=== PATIENT | female | born 1965 | race Caucasian/White ===

== ENCOUNTER 2017-11-06 18:21 | Emergency (ER) | payer OTHER, SELFPAY ==
[2017-11-06] VITALS (8 sets, daily range): BP systolic 129–163; BP diastolic 74–89; PULSE 70–98; RESP 12–18; TEMP 36.9; O2SAT 95–98; BMI 37.8
--- NOTE | 2017-11-06 19:06 | NURSING ---
NO OLD EKG'S IN MUSE
--- NOTE | 2017-11-06 19:17 | EKG12_ITS ---
Test Reason : CP Blood Pressure : / mmHG Vent. Rate : 104 BPM Atrial Rate : 104 BPM P-R Int : 156 ms QRS Dur : 074 ms QT Int : 320 ms P-R-T Axes : 052 011 039 degrees QTc Int : 420 ms Sinus tachycardia Otherwise normal ECG Confirmed by NICK SANCHEZ, KATHYA ([id number]), material expeditor AASHISH ESTES ([id number]) on 11/09/2017 12:54:02 PM Referred By: MARK Confirmed By:KATHYA ROMERO MD
--- NOTE | 2017-11-06 19:40 | RAD_ITS ---
STUDY: X-RAY CHEST REASON FOR EXAM: Female, 52 years old. Chest pain TECHNIQUE: Single AP portable view of the chest. COMPARISON: None. FINDINGS: The lungs are clear and expanded. There is no demonstrated pleural abnormality. Normal size heart. Normal mediastinum and praneeth. Normal visualized pulmonary arteries. Normal visualized aortic arch and descending thoracic aorta. Normal visualized thoracic spine. Normal visualized ribs, clavicles, and shoulders. There is no demonstrated abnormality of the visualized soft tissue structures of the upper abdomen. RAD/Chest 1 View (Portable) IMPRESSION: Normal x-ray examination of the chest. Electronically Signed: Alex Gant MD at 20:29 EST , Service support ,
--- NOTE | 2017-11-06 19:40 | ED.DCSUM_ITS ---
- ER Visit Summary Date of Service: 11/06/17 Chief Complaint: Chest pain History of Present Illness: The patient is a 52 F with history of fibromyalgia and degenerative joint disease who presents with chest pain since last night. Patient states it woke her from sleep. It is substernal and radiates to the right chest greater than the left chest and into the right neck and back. Patient vomited twice today but otherwise denies nausea, abdominal pain, diarrhea. She does have associated cough and shortness of breath. Chest pain is worse with deep breathing and certain movements. No difference with positional change. Patient has history of skin and cervical cancer. No coronary artery disease, asthma, diabetes, hypertension, high cholesterol. No exogenous steroids. No history of DVT or PE. Patient does have cardiac history in her family and smokes. Physical Examination: Vital signs: afebrile, hemodynamically stable, no hypoxia on room air, tachycardia General: well nourished, well developed, in no distress appears uncomfortable Skin: warm, dry, no rash, no pallor, flushing of the neck and face HEENT: normocephalic and atraumatic; PERRL, EOMI, moist mucous membranes Cardiovascular: Tachycardic regular rate and rhythm without murmurs, no peripheral edema, 2+ pulses all distal extremities Respiratory: No increased work of breathing, unable to take a deep breath secondary to pain, lungs are clear to auscultation bilaterally, no rales, rhonchi or wheezing Abdominal: Abdomen is soft, nontender with normoactive bowel sounds, no guarding or rebound, no masses MSK: Moves all extremities, no deformities, normal strength Neuro: Awake and alert, oriented ?4. No facial droop, sensation and motor function intact and symmetric Test Results: Abnormal Lab Results 11/06/17 11/06/17 11/06/17 18:38 18:38 18:38 WBC 7.7 RBC 4.29 Hgb 12.0 Hct 37.4 MCV 87.2 MCH 28.0 MCHC 32.1 RDW 14.7 H RDW Differential 46.7 H Plt Count 336 MPV 10.1 Immature Gran % (Auto) 0.300 Neut % (Auto) 55.3 Lymph % (Auto) 31.0 [place] % (Auto) 10.4 H Eos % (Auto) 2.5 Baso % (Auto) 0.5 Absolute Neuts (auto) 4.2 Absolute Lymphs (auto) 2.38 Total Counted Not Reportable D-Dimer Quant (PE/DVT) < 0.27 L Sodium 139 Potassium 3.9 Chloride 107 Carbon Dioxide 23.0 Anion Gap 9 BUN 14 Creatinine 0.73 Estim Creat Clear Calc 79.61 Est GFR (MDRD) Af Amer 109 Est GFR (MDRD) Non-Af 90 BUN/Creatinine Ratio 19.3 Glucose 103 Calcium 9.0 Total Bilirubin Direct Bilirubin AST ALT Alkaline Phosphatase Troponin I < 0.02 Total Protein Albumin Globulin Lipase 11/06/17 18:38 WBC RBC Hgb Hct MCV MCH MCHC RDW RDW Differential Plt Count MPV Immature Gran % (Auto) Neut % (Auto) Lymph % (Auto) [place] % (Auto) Eos % (Auto) Baso % (Auto) Absolute Neuts (auto) Absolute Lymphs (auto) Total Counted D-Dimer Quant (PE/DVT) Sodium Potassium Chloride Carbon Dioxide Anion Gap BUN Creatinine Estim Creat Clear Calc Est GFR (MDRD) Af Amer Est GFR (MDRD) Non-Af BUN/Creatinine Ratio Glucose Calcium Total Bilirubin 0.20 Direct Bilirubin 0.06 AST 17 ALT 35 Alkaline Phosphatase 59 Troponin I Total Protein 7.2 Albumin 3.6 Globulin 3.6 Lipase 167 Emergency Department Course and Treatment: Chest pain workup was performed. Patient was given aspirin and nitroglycerin as well as Zofran. IV fluids were given. EKG showed a sinus tachycardia with no ischemic changes. D-dimer negative. Troponin normal. CBC and BMP were unremarkable. No hepatic derangements. EKG showed a tachycardic rate with no ischemic changes or ectopy. Chest x-ray showed no acute process. She continued to have severe chest pain that she said was getting worse, now complaining of neck pain, severe headache and back pain. Because of the worsening of her symptoms in multiple locations, a CT angiogram of the chest was performed to evaluate for possible dissection. There was no pulmonary embolism or dissection noted. There was findings of a posterior right lower lobe bronchus that was obstructed likely by a mucous plug, and a questionable lingula infiltrate. And was to admit the patient for further management and treatment with antibiotics as well as evaluation for the bronchial obstruction. However patient said she was leaving before her results could be discussed with her. Patient would not stop and wait for the nurse to get me so that we could discuss her concerning findings. Patient was adamant she was leaving and the nurse had to follow her out to the waiting room to make sure the IV was removed prior to patient walking out with it in place. Return IV out and walked out the door. Patient left prior to completion of her workup and would not wait for any further discussion with me before leaving. Treatment Plan: [] Disposition: Patient eloped Impression: Right bronchial obstruction, chest pain This note was generated with [employer] dictation software. It may contain incorrect words, spelling, and punctuation that were not noted in review of the chart prior to signing ED Disposition - Plan for ED Patient: Disposition: Against Medical Advice Chief Complaint: Chest Pain Referrals: Town Doctor,Out of [NON-STAFF] -
[2017-11-06 19:56] LABS: Absolute Lymphocyte Count 2.38 X10^3/ul (0.83-4.51); Absolute Neutrophil Count 4.2 X10^3/uL (2.0-7.7); Basophil# 0.04 X10^3/uL; Basophil% 0.5 % (0-1); Eosinophil# 0.19 X10^3/uL; Eosinophils% 2.5 % (0-5); Hematocrit 37.4 % (37-47); Lymphocyte # 2.38 X10^3/ul (4.0); Mean Corp Hgb Conc 32.1 g/gl (32-36); Mean Corpuscular Volume 87.2 fL (81-99); Mean Platelet Vol. 10.1 fl (6.2-12.0); Monocyte% 10.4 % (0-10); Neutrophil # 4.24 X10^3/uL (2.7-7.7); Neutrophil % 55.3 % (47-70); Platelet Count 336 K/mm3 (150-450); RBC Distribution Width CV 14.7 % (11.6-14.6); RBC Distribution Width SD 46.7 fl (35.1-43.9); Red Blood Count 4.29 M/mm3 (4.2-5.4); White Blood Count 7.7 K/mm3 (4.4-11.0)
[2017-11-06 19:57] LABS: POSITIVE COUNT NO; POSITIVE DIFFERENTIAL NO; POSITIVE MORPHOLOGY NO
[2017-11-06] MEDS: Aspirin 81 MG TAB.CHEW 324 MG PO (20:00)
[2017-11-06] MEDS: Ondansetron 4 MG/2 ML Vial IV (20:00)
[2017-11-06] MEDS: 0.9% Normal Saline 1,000 ML 1000 ML IV (20:02)
[2017-11-06 20:10] LABS: D-Dimer Quantitative (DVT/PE) < 0.27 FEU/ug/m (0.27-0.49)
[2017-11-06 20:12] LABS: AST(SGOT) 17 U/L (15-37); Alanine Aminotransfer ALT/SGPT 35 U/L (13-56); Albumin, Serum 3.6 g/dL (3.2-5.0); Alkaline Phosphatase 59 U/L (45-117); Bilirubin, Direct 0.06 mg/dL (0.00-0.30); Globulin 3.6 g/dL (2.2-4.2); Lipase 167 U/L (73-393); Protein, Total 7.2 g/dL (6.4-8.2)
[2017-11-06 20:13] LABS: Anion Gap 9 (5-15); BUN 14 mg/dL (7-18); BUN/Creat Ratio 19.3 RATIO (10-20); Chloride 107 mmol/L (98-107); Creatinine, Serum 0.73 mg/dL (0.55-1.02); EST Glomerular Filtration Rate 90 mL/min (>60); Est Glom Filt Rate - Afr Amer 109 mL/min (>60); Estimated Creatinine Clearance 79.61 ml/min; Glucose 103 mg/dL (74-106); Potassium 3.9 mmol/L (3.5-5.1); Sodium Level 139 mmol/L (136-145)
--- NOTE | 2017-11-06 21:14 | CT_ITS ---
STUDY: CTA CHEST REASON FOR EXAM: Female, 52 years old. Right-sided chest pain. RADIATION DOSAGE (If Supplied By Facility): CTDIvol = ( 15.01 ) mGy, DLP = ( 675.76 ) mGycm TECHNIQUE: The examination was performed with the intravenous administration of 100 ml of Isovue 370 contrast material. Post-processing of the angiographic images was performed, with multiplanar reformation and 3D reconstruction. Individualized dose optimization techniques were used for this CT. COMPARISON: Prior chest radiograph of November 06, 2017 FINDINGS: Normal enhancement of the main pulmonary artery and right and left pulmonary arteries. Normal enhancement of the bilateral peripheral pulmonary arteries. There is no demonstrated pulmonary embolism. Normal thoracic aorta and visualized great vessels. There is no demonstrated aortic dissection. Normal heart and pericardium. Normal mediastinum. Shot[place] right hilar lymph nodes. Bronchial thickening right lower lobe with at least one occluded subsegmental bronchus to the posterior right lower lobe. Mild bibasilar atelectatic changes without focal consolidation. Minimal patchy infiltrate or atelectatic changes in the inferior lingula of the left lung. Negative for pleural effusion. Normal pleura. Normal chest wall structures. There are degenerative changes of thoracic spine. Normal visualized upper abdomen. CT/CTA Chest W/WO Contrast IMPRESSION: Negative for pulmonary embolus. Normal thoracic aorta. Normal cardiac size negative for coronary calcifications. Shot[place] right hilar lymph nodes. Bronchial thickening of the right lower lobe with at least one occluded subsegmental bronchus to the posterior right lower lobe secondary to mucosal thickening or secretions. Mild bibasilar general atelectatic changes without consolidation. Minimal patchy infiltrate or atelectatic changes of the inferior lingula. Negative for pleural effusion. Electronically Signed: Santa Pemberton MD at 22:32 EST , Service support ,
--- NOTE | 2017-11-06 22:52 | NURSING ---
THIS RN WAS NOTIFIED BY ANOTHER RN THAT PT HAD HER CLOTHES ON AND WAS LEAVING. THE RN MET PT AROUND THE TRIAGE DESK AND TOLD HER SHE NEEDED TO SIT IN TRIAGE ROOM 1 AND GET HER IV'S PULLED. #20 GAUGE IN RIGHT HAND AND #2 RIGHT AC D/C AND INTACT. #20 IN RIGHT HAND STARTED BLEEDING AND WAS TOLD TO HANG ON TO GET A NEW COVERING OVER IT. PT REFUSED AND SAID SHE DID NOT CARE. DR. AMATO NOTIFIED. DR. AMATO STATES D/C PATIENT AMA
== END 2017-11-06 22:56 | disposition left against medical advice (07) ==
LOC: ED 19:52
PROVIDERS: Emergency Provider Emergency Medicine; Family Provider Family Medicine; PCP Family Medicine
DX: J98.4 Other disorders of lung (principal); R07.9 Chest pain, unspecified; M19.90 Unspecified osteoarthritis, unspecified site; F17.200 Nicotine dependence, unspecified, uncomplicated; Z85.828 Personal history of other malignant neoplasm of skin; Z85.41 Personal history of malignant neoplasm of cervix uteri
CPT/HCPCS: 71045; 71275; 80048; 80076; 83690; 84484; 85025; 85379; 93005; 96374; 96375; 99283; J7030; Q9967; A4216; J2405

== ENCOUNTER → 2018-01-06 13:21 | Outpatient (CLI) | payer OTHER, SELFPAY ==
[2018-01-06 14:00] LABS: Amphetamine Urine VISTA NEGATIVE (<1000 ng/mL); Barbiturate Urine VISTA NEGATIVE (< 200 ng/mL); Benzodiazepine Urine VISTA NEGATIVE (< 200 ng/mL); Cocaine Urine VISTA NEGATIVE (< 300 ng/mL); Ecstacy Urine VISTA NEGATIVE (< 500 ng/mL); Methadone Urine VISTA NEGATIVE (< 300 ng/mL); PCP Urine VISTA NEGATIVE (< 25 ng/mL); THC Urine VISTA POSITIVE (< 50 ng/mL); Vista UDS pH Range 5
== END ==
PROVIDERS: Family Provider Family Medicine; PCP Family Medicine; Visit Provider Anesthesiology Pain Medicine
DX: F11.20 Opioid dependence, uncomplicated (principal)
CPT/HCPCS: 80307

== ENCOUNTER → 2018-03-03 17:31 | Outpatient (CLI) | payer OTHER, SELFPAY ==
--- NOTE | 2018-03-03 17:35 | RAD_ITS ---
STUDY: X-RAY - CERVICAL SPINE REASON FOR EXAM: Female, 52 years old. Neck pain. TECHNIQUE: 3 view(s) of the cervical spine were obtained. COMPARISON: None FINDINGS: Normal anterior atlantoaxial articulation. Normal odontoid process. There is reversal of the normal cervical lordosis. Degenerative changes are seen in the vertebrae and intervertebral discs C5-C6, C6-C7, and C7-T1. The soft tissue structures are unremarkable. There is no demonstrated fracture of the cervical spine. RAD/Cerv Spine 2 or 3 Views IMPRESSION: No acute fracture/dislocation. Degenerative changes. Electronically Signed: Brian Leary MD at 12:05 EDT , Service support ,
== END ==
PROVIDERS: Family Provider Family Medicine; PCP Family Medicine; Visit Provider Anesthesiology Pain Medicine
DX: M54.2 Cervicalgia (principal)
CPT/HCPCS: 72040

== ENCOUNTER → 2018-07-12 07:02 | Outpatient (CLI) | payer OTHER, SELFPAY ==
--- NOTE | 2018-07-12 07:05 | MRI_ITS ---
STUDY: MRI LUMBAR SPINE WITHOUT CONTRAST REASON FOR EXAM: Female, 52 years old. Low back pain with radicular symptoms to the right lower extremities. TECHNIQUE: Standardized fat and water weighted pulse sequences were obtained in the sagittal and axial planes. COMPARISON: Prior comparable comparison studies are not available for review at this time. FINDINGS: T12-L1: Normal endplates. Normal disc height, signal and morphology. Normal bilateral facet joints. Normal central canal and bilateral lateral recesses. Normal bilateral intervertebral neural foramina. Normal lumbar lordosis. There is no substantial scoliosis. Normal conus medullaris that terminates at the L1-2 level. L1-2: Normal endplates. Normal disc height, hydration and morphology. Normal bilateral facet joints. Normal central canal and bilateral lateral recesses. Normal bilateral intervertebral neural foramina. L2-3: There is mild annular disk bulge and osteophyte complex. There is mild degenerative arthropathy of the facet joints. Bilateral neuroforamina are narrowed without MR evidence for nerve impingement. There is no significant acquired central canal stenosis. L3-4: There is a broad central disc protrusion. There is moderate degenerative arthropathy of the facet joints. There is mild central acquired canal stenosis. Neural foramina are bilaterally narrowed with out evidence for nerve impingement. L4-5: Normal endplates. Normal disc height, signal and morphology. There is mild degenerative arthropathy of bilateral facet joints. Normal central canal and bilateral lateral recesses. Normal bilateral intervertebral neural foramina. L5-S1: Normal endplates. Normal disc height, signal and morphology. Normal bilateral facet joints. Normal central canal and bilateral lateral recesses. There is mild narrowing of bilateral intervertebral neural foramina without evidence for impingement. Normal visualized sacral ala. Normal visualized paraspinous soft tissue structures. MRI/Spine Lumbar (Routine) IMPRESSION: Mild multilevel degenerative disc disease and degenerative arthropathy of the lumbar spine with neural foraminal narrowing, as described. Electronically Signed: Bettye Pederson MD at 10:16 EDT , Service support ,
== END ==
PROVIDERS: Family Provider Family Medicine; PCP Family Medicine; Referring Provider Anesthesiology Pain Medicine; Visit Provider Anesthesiology Pain Medicine
DX: M54.9 Dorsalgia, unspecified (principal); M79.606 Pain in leg, unspecified
CPT/HCPCS: 72148

== ENCOUNTER → 2019-03-07 | Outpatient (CLI) | payer OTHER, SELFPAY ==
[2019-03-07 17:17] LABS: Amphetamine Urine VISTA NEGATIVE (<1000 ng/mL); Barbiturate Urine VISTA NEGATIVE (< 200 ng/mL); Benzodiazepine Urine VISTA NEGATIVE (< 200 ng/mL); Cocaine Urine VISTA NEGATIVE (< 300 ng/mL); Ecstacy Urine VISTA NEGATIVE (< 500 ng/mL); Methadone Urine VISTA NEGATIVE (< 300 ng/mL); PCP Urine VISTA NEGATIVE (< 25 ng/mL); THC Urine VISTA POSITIVE (< 50 ng/mL); Vista UDS pH Range 7
== END | disposition home or self-care (01) ==
LOC: LAB 15:48
PROVIDERS: Family Provider Family Medicine; PCP Family Medicine; Referring Provider Anesthesiology Pain Medicine; Visit Provider Anesthesiology Pain Medicine
DX: F11.20 Opioid dependence, uncomplicated (principal)
CPT/HCPCS: 80307

== ENCOUNTER → 2019-08-02 | Outpatient (CLI) | payer OTHER, SELFPAY ==
--- NOTE | 2019-08-02 18:15 | MRI_ITS ---
STUDY: MRI LUMBAR SPINE WITHOUT CONTRAST REASON FOR EXAM: Female, 53 years old. Back pain TECHNIQUE: Standardized fat and water weighted pulse sequences were obtained in the sagittal and axial planes. COMPARISON: July 12, 2018 FINDINGS: T12-L1: Normal endplates. Normal disc height, hydration and morphology. Normal bilateral facet joints. Normal central canal and bilateral lateral recesses. Normal bilateral intervertebral neural foramina. Normal lumbar lordosis. There is no substantial scoliosis. Normal conus medullaris that terminates at the L1-2: Normal endplates. Normal disc height, hydration and morphology. Normal bilateral facet joints. Normal central canal and bilateral lateral recesses. Normal bilateral intervertebral neural foramina. L2-3: Normal endplates. Normal disc height, hydration and minor annular bulge.. Minor facet arthropathy.. Normal central canal and bilateral lateral recesses. Normal bilateral intervertebral neural foramina. L3-4: Normal endplates. Normal disc height, desiccation and mild annular bulge with small left foraminal disc protrusion. Mild facet arthropathy. Normal central canal and bilateral lateral recesses. Mild right neuroforaminal stenosis and moderate narrowing on the left.. L4-5: Normal endplates. Normal disc height, hydration and minor annular bulge.. Mild facet arthropathy.. Normal central canal and bilateral lateral recesses. Mild bilateral neural foraminal encroachment. Tiny extracapsular synovial cyst posterior to the left facet joint L5-S1: Normal endplates. Normal disc height desiccation and mild annular bulge. Bilateral facet arthropathy.. Normal central canal and bilateral lateral recesses. Mild bilateral neuroforaminal stenosis Normal visualized sacral ala. Normal visualized paraspinous soft tissue structures. No significant change since prior study MRI/Spine Lumbar (Routine) IMPRESSION: No evidence for acute fracture or subluxation.. Mild multilevel spinal stenosis secondary to disc disease and bony hypertrophy most severe at L3-4 greater on the left Electronically Signed: Luis Daniel Ortiz MD at 19:51 EST , Service support ,
== END | disposition home or self-care (01) ==
LOC: MRI 16:54
PROVIDERS: Family Provider Family Medicine; PCP Family Medicine; Referring Provider Anesthesiology Pain Medicine; Visit Provider Anesthesiology Pain Medicine
DX: M54.9 Dorsalgia, unspecified (principal); M79.606 Pain in leg, unspecified
CPT/HCPCS: 72148

== ENCOUNTER → 2019-10-04 13:04 | Outpatient (CLI) | payer OTHER, SELFPAY ==
[2019-10-04 13:02] VITALS: BMI 37.8
--- NOTE | 2019-10-04 13:04 | RAD_ITS ---
STUDY: X-RAY - LUMBAR SPINE REASON FOR EXAM: Female, 53 years old. pain TECHNIQUE: 4 view(s) of the lumbar spine were obtained. COMPARISON: None FINDINGS: Normal lumbar lordosis. There is no substantial scoliosis. There is a normal alignment of the vertebrae. There is multilevel endplate spondylosis of the lumbar vertebrae. Normal disc space heights. The soft tissue structures are unremarkable. RAD/L/S Spine Min 4 Views IMPRESSION: Diffuse endplate spondylosis of the lumbar spine. Electronically Signed: Boo Davis MD at 17:09 EST , Service support ,
== END ==
PROVIDERS: Family Provider Family Medicine; PCP Family Medicine; Referring Provider Orthopaedic Surgery; Visit Provider Orthopaedic Surgery
DX: M54.5 Low back pain (principal)
CPT/HCPCS: 72110

== ENCOUNTER → 2021-04-01 14:42 | Outpatient (CLI) | payer OTHER, SELFPAY ==
[2019-10-04 13:41] VITALS: BMI 39.4
--- NOTE | 2021-04-01 14:45 | RAD_ITS ---
STUDY: X-RAY - CERVICAL SPINE REASON FOR EXAM: Female, 55 years old. NECK PAIN TECHNIQUE: 3 view(s) of the cervical spine were obtained. COMPARISON: None FINDINGS: Normal anterior atlantoaxial articulation. Normal odontoid process. There is straightening of the normal cervical lordosis. There is multi-level endplate spondylosis. There is multi-level degenerative disc disease with multilevel disc space narrowing. Normal visualized intervertebral neuroforamina. Calcification of the posterior nuchal ligament. RAD/Cerv Spine 2 or 3 Views IMPRESSION: Straightening of the normal cervical lordosis. Anterior spondylosis and disc space narrowing. Electronically Signed: Bharath D eLeon MD at 14:46 EDT , Service support ,
== END ==
PROVIDERS: PCP Family Medicine; Referring Provider Anesthesiology Pain Medicine; Visit Provider Anesthesiology Pain Medicine
DX: M54.2 Cervicalgia (principal)
CPT/HCPCS: 72040

== ENCOUNTER → 2022-09-11 | Outpatient (CLI) | payer OTHER, SELFPAY ==
[2022-09-11 15:46] LABS: Amphetamine Urine VISTA NEGATIVE (<1000 ng/mL); Barbiturate Urine VISTA NEGATIVE (< 200 ng/mL); Benzodiazepine Urine VISTA NEGATIVE (< 200 ng/mL); Cocaine Urine VISTA NEGATIVE (< 300 ng/mL); Ecstacy Urine VISTA NEGATIVE (< 500 ng/mL); Methadone Urine VISTA NEGATIVE (< 300 ng/mL); PCP Urine VISTA NEGATIVE (< 25 ng/mL); THC Urine VISTA POSITIVE (< 50 ng/mL); Vista UDS pH Range 6
== END | disposition home or self-care (01) ==
LOC: LAB 15:07
PROVIDERS: PCP Family Medicine; Visit Provider Anesthesiology Pain Medicine
DX: F11.20 Opioid dependence, uncomplicated (principal)
CPT/HCPCS: 80307

== ENCOUNTER 2022-11-28 09:58 | Emergency (ER) | payer OTHER, SELFPAY ==
[2022-11-28 09:58] VITALS: BP 140/81; PULSE 107; RESP 18; TEMP 36.2; O2SAT 97
[2022-11-28 10:38] LABS: Absolute Lymphocyte Count 3.14 X10^3/uL (0.83-4.51); Absolute Neutrophil Count 3.8 X10^3/uL (2.0-7.7); Basophil# 0.07 X10^3/uL; Basophil% 0.9 % (0-1); Eosinophils% 3.8 % (0-5); Hematocrit 42.6 % (37-47); Hemoglobin 13.5 g/dL (12.0-15.0); Lymphocyte # 3.14 X10^3/ul (0.83-4.51); Lymphocyte % 39.3 % (19-41); Mean Corp Hgb Conc 31.7 g/dL (32-36); Mean Corpuscular Hgb 27.7 pg (27.0-32.0); Mean Corpuscular Volume 87.5 fL (81-99); Mean Platelet Vol. 9.4 fl (6.2-12.0); Monocyte% 7.5 % (0-10); NRBC Flagged by Analyzer 0 % (0-5); Neutrophil # 3.84 X10^3/uL (2.7-7.7); Platelet Count 414 K/mm3 (150-450); RBC Distribution Width CV 14.1 % (11.6-14.6); RBC Distribution Width SD 45.4 fl (35.1-43.9); Red Blood Count 4.87 M/mm3 (4.2-5.4)
[2022-11-28] MEDS: Ketorolac 15 MG/ML Vial IV (10:43)
[2022-11-28] MEDS: morphine 8 MG/ML Syringe IV (10:43)
[2022-11-28] MEDS: Ondansetron 4 MG/2 ML Vial IV (10:43)
[2022-11-28 10:44] VITALS: BMI 44.1
[2022-11-28 10:52] LABS: AST(SGOT) 13 U/L (15-37); Alanine Aminotransfer ALT/SGPT 29 U/L (13-56); Albumin, Serum 3.8 g/dL (3.2-5.0); Alkaline Phosphatase 62 U/L (45-117); Anion Gap 7 (5-15); BUN 9 mg/dL (7-18); BUN/Creat Ratio 11.5 RATIO (10-20); Calcium,Total 9.3 mg/dL (8.5-10.1); Chloride 107 mmol/L (98-107); Creatinine, Serum 0.78 mg/dL (0.55-1.02); EST Glomerular Filtration Rate 81 mL/min (>60); Est Glom Filt Rate - Afr Amer 98 mL/min (>60); Estimated Creatinine Clearance 67.41 ml/min; Globulin 3.7 g/dL (2.2-4.2); Glucose 109 mg/dL (74-106); Potassium 4.1 mmol/L (3.5-5.1); Protein, Total 7.5 g/dL (6.4-8.2); Sodium Level 142 mmol/L (136-145)
[2022-11-28 10:54] LABS: Erythrocyte Sedimentation Rate 25 mm/hr (0-30)
--- NOTE | 2022-11-28 11:40 | ED.VIS.BACK ---
HPI History of Present Illness Chief Complaint: Back Detail of Chief Complaint: Exacerbation of back pain after patient felt a pop this morning Informant: patient and spouse/S.O. Onset/Context/Timing Onset: Today (Per chief complaint) and Weeks (Patient experienced a pop 6 weeks ago had pain since. Further detail HPI narrative) Context: Onset with activity (Bending over to put on shoes) and Sudden Onset Chronic pain exacerbated by: Exacerbation of chronic back pain. Injury: bending Timing: Continuous Quality: Dull and Aching Location: Lumbar, Buttock and Right Leg (Posteriorly to the heel) Current Severity: Mild Maximum Severity: Severe Worsened by: improves with Movement, Ambulation, Bending and Lifting Relieved by: Nothing Associated Symptoms Associated Symptoms: Radiation to Right Leg and - (Denies saddle paresthesia or anesthesia. Reported buckling of her right knee going up a few steps. Denies foot drop.); Negative for Numbness, Tingling, Radiation to Left Leg, Fever, Abdominal Pain, Dysuria, Unable to Ambulate, Unable to Transfer, Urinary Retention, Urinary Incontinence, Constipation or Fecal Incontinence Narrative Narrative: Patient is a 57-year-old woman who has history of chronic back pain. She had an MRI several years ago which revealed degenerative disc disease. She sees Dr. Altman for pain management. She is recently been injected. She denies bowel bladder dysfunction. She does report radicular pain right side, sciatica. She denies foot drop. She does endorse buckling of her knee going up or down a few steps at home. She has no bowel bladder dysfunction. She denies fever, chills night sweats. She denies weight gain or weight loss. She denies direct trauma. She denies recent dental procedure or infectious symptoms. She denies rash. Prior similar symptoms: Yes and With Prior Back Pain Recent Illness/Hospitalization: Yes PFSH PFSH Medical History no medical history Home Medications hydrocodone-acetaminophen 5-325mg 5mg-325mg (Theodosia) 1 tab PO BID PRN 10/04/19 [History Last Taken Unknown] tizanidine 2 mg capsule 2 mg PO BID PRN 10/04/19 [History Last Taken Unknown] Allergy/AdvReac Type Severity Reaction Status Date / Time No Known Allergies Allergy Verified 11/28/22 10:00 Social History (Updated 10/10/19 @ 11:[address] Aisha Barr MD) Smoking Status: Current every day smoker tobacco type: cigarettes ROS ROS ED Constitutional Constitutional ED: Denies chills, fever(s), subjective or sweats Eyes Eyes: Denies blurry vision, change in vision or diplopia ENT ENT ED: Denies ear pain, rhinorrhea or sore throat Cardiovascular Cardiovascular: Denies chest pain or palpitations Respiratory/Chest Respiratory/Chest: Denies dyspnea or dyspnea on exertion Gastrointestinal Gastrointestinal: Denies abdominal pain, constipation, diarrhea, nausea or vomiting Genitourinary Genitourinary ED: Denies dysuria, hematuria or urinary frequency Musculoskeletal Musculoskeletal: Reports back pain; Denies arthralgias, myalgias or neck pain Integumentary Denies rash Neurologic Neurologic: Denies paresthesias or weakness Psychiatric Psychiatric: Denies anxiety Endocrine Endocrinology: Denies cold intolerance or heat intolerance Hematologic/Lymphatic Hematologic/Lymphatic: Denies easy bleeding or easy bruising EXAM Physical Exam Const Vital Signs: 11/28/22 09:58 Temperature 97.1 F L Temperature Source Temporal Pulse Rate 107 H Respiratory Rate 18 Blood Pressure 140/81 H Blood Pressure Mean 100 Pulse Ox 97 Oxygen Delivery Method Room Air Positive well nourished, well developed and obese Constitutional Narrative: Patient appears uncomfortable. General Appearance ED: well developed; Negative for NAD or pallor Nutritional Appearance: obese HEENT Reports moist mucous membranes HEENT Narrative: Head is normal cephalic atraumatic. Ears normal. Nares are patent. Posterior pharynx is normal. Uvula is midline. Eyes PERRL and EOMs intact bilaterally General Eye ED: Negative for pale conjunctiva or scleral icterus Neck no lymphadenopathy, supple and no JVD Resp normal respiratory effort and clear to auscultation bilaterally Cardio regular rate, regular rhythm, S1 normal heart sound, S2 normal heart sound and no murmurs GI normal to inspection, nondistended, normoactive bowel sounds, soft to palpation, non-tender, non-distended and no masses GI Narrative: There is no palp pulsatile mass. There is no abdominal bruit Back/Spine normal to inspection; Negative for no thoracic nor lumbar tenderness Back/Spine Narrative: Equivocal straight leg test on the right. Will reassess after patient is medicated. Cervical Spine: Negative for cervical spine tenderness Thoracic Spine / Upper Back: paraspinal muscle tenderness Lumbar Spine / Lower Back: ROM limited Extremity normal to inspection and no clubbing, cyanosis or edema Extremity Narrative: DP and PT pulse are palpable. Neuro oriented x3 and no sensory deficits noted Neuro Narrative: Patient reports altered sensation over L3 and L for dermatome. This is on the left and not the right side that she complains of her knee buckling going up or down steps. Once patient was medicated she was asked to ambulate. There is no foot drop. Able to walk on heels and toes. Able to perform 1 legged squat right and left. Normal sensation in the buttocks area. Sensorium / Orientation: alert Motor Exam: strength 5/5 throughout Deep Tendon Reflexes: Rt Patellar (L4): 1+, Lt Patellar (L4): 1+, Rt Ankle (S1): 1+ and Lt Ankle (S1): 1+ Deep Tendon Reflexes Back: Rt Patellar (L4): 1+, Lt Patellar (L4): 1+, Rt Ankle (S1): 1+ and Lt Ankle (S1): 1+ Plantar Reflex: Downgoing: bilateral (There is no clonus.) Psych Mood & Affect: depressed Skin no rashes or lesions noted and no wounds General Skin Exam: Negative for jaundice or pallor MDM MDM MDM Narrative Medical decision making narrative: Patient with exacerbation of acute back pain need to assess for degenerative disc disease, infectious process, herniated disc, musculoskeletal. CBC, comprehensive metabolic panel and sed rate were obtained since patient's had pain for greater than 6 weeks. Since she has a nonfocal neurologic exam x-rays were obtained versus MRI. History & Record Review Discussion w/independent historian: Patient and Significant other Additional record(s) reviewed:: Prior outpatient record (MRI performed on July 2019 revealedMild multilevel degenerative disc disease and degenerative arthropathy of the lumbar spine with neural foraminal narrowing) Lab Data Labs: Laboratory Results - last 24 hr 11/28/22 11/28/22 10:30 10:30 WBC 8.0 RBC 4.87 Hgb 13.5 Hct 42.6 MCV 87.5 MCH 27.7 MCHC 31.7 L RDW Std Deviation 45.4 H RDW Coeff of [place] 14.1 Plt Count 414 MPV 9.4 Immature Gran % (Auto) 0.500 Neut % (Auto) 48.0 Lymph % (Auto) 39.3 [place] % (Auto) 7.5 Eos % (Auto) 3.8 Baso % (Auto) 0.9 Absolute Neuts (auto) 3.8 Absolute Lymphs (auto) 3.14 Nucleated RBC % 0 ESR 25 Sodium 142 Potassium 4.1 Chloride 107 Carbon Dioxide 28.0 Anion Gap 7 BUN 9 Creatinine 0.78 Estim Creat Clear Calc 67.41 Est GFR (MDRD) Af Amer 98 Est GFR (MDRD) Non-Af 81 BUN/Creatinine Ratio 11.5 Glucose 109 H Calcium 9.3 Total Bilirubin 0.20 AST 13 L ALT 29 Alkaline Phosphatase 62 Total Protein 7.5 Albumin 3.8 Globulin 3.7 Albumin/Globulin Ratio 1.0 Radiography Chest X-Ray - ED: Read by ED Physician (Review x-ray of the LS-spine independently reviewed interpreted by me at 1212 reveals degenerative disease at multiple levels. There is no narrowing of the vertebral disc spaces. There is mild atherosclerotic disease of the abdominal aorta without aneurysmal dilatation.) Diagnostic Testing: Clinical Impression(s) from Imaging Studies Lumbar Spine X-Ray 11/28/22 11:55 IMPRESSION: Degenerative changes of the spine, as detailed above. Electronically Signed: Bharath De Leon MD at 12:19 EST , Treatment and Re-Evaluation Narrative: Patient was informed of results at 1333. Plan is additional dose of morphine prior to discharge. She was informed of results. She was informed to follow-up with Dr. Varela. Discharge Plan Triage Chief Complaint: Back ED Provider: [place] Dx/Rx/DC Orders Clinical Impression: Acute exacerbation of chronic low back pain, Acute right-sided back pain with sciatica, DDD (degenerative disc disease), lumbar, Elevated blood pressure reading Instructions: ED Sciatica Prescriptions: No Action hydrocodone-acetaminophen [Theodosia] 5-325 mg tablet 1 tab PO BID PRN tizanidine 2 mg capsule 2 mg PO BID PRN Primary Care Provider: Ralph Mendiola Referrals: Osman Soni MD [Med Staff - Active Staff] - 3-5 Days Ralph Mendiola MD [Primary Care Provider] - 1 Week Disposition Disposition: Home, Self Care
--- NOTE | 2022-11-28 11:55 | RAD_ITS ---
STUDY: X-RAY - LUMBAR SPINE REASON FOR EXAM: Female, 57 years old. Injury/Pain TECHNIQUE: 3 view(s) of the lumbar spine were obtained. COMPARISON: Comparison is made with prior study dated April 03, 2020. FINDINGS: Normal lumbar lordosis. There is a mild degree of dextroscoliosis of the lumbar spine. There is a normal alignment of the vertebrae. There is multilevel endplate spondylosis of the lumbar vertebrae. There is multi-level degenerative disc disease with multi-level disc space narrowing. Large amount of fecal material is seen in the colon. RAD/Lumbar Spine 2 or 3 Views IMPRESSION: Degenerative changes of the spine, as detailed above. Electronically Signed: Bharath De Leon MD at 12:19 EST ,
[2022-11-28] MEDS: Morphine 4 MG/ML Syringe IV ×2 (12:09→13:52)
[2022-11-28 14:11] VITALS: BP 154/88; PULSE 93; RESP 16; O2SAT 98
== END 2022-11-28 14:12 | disposition home or self-care (01) ==
PROVIDERS: Emergency Provider Emergency Medicine; PCP Family Medicine; Visit Provider Emergency Medicine
DX: M54.31 Sciatica, right side (principal); M51.36 Other intervertebral disc degeneration, lumbar region; R03.0 Elevated blood-pressure reading, without diagnosis of hypertension; F17.210 Nicotine dependence, cigarettes, uncomplicated; G89.29 Other chronic pain; E66.9 Obesity, unspecified
CPT/HCPCS: 72100; 80053; 85025; 85652; 96374; 96375; 96376; 99284; A4216; J2405

== ENCOUNTER → 2024-02-02 | Outpatient (CLI) | payer OTHER, SELFPAY ==
[2024-02-02 15:43] LABS: Amphetamine Urine VISTA NEGATIVE (<1000 ng/mL); Barbiturate Urine VISTA NEGATIVE (< 200 ng/mL); Benzodiazepine Urine VISTA NEGATIVE (< 200 ng/mL); Cocaine Urine VISTA NEGATIVE (< 300 ng/mL); Ecstacy Urine VISTA NEGATIVE (< 500 ng/mL); Methadone Urine VISTA NEGATIVE (< 300 ng/mL); PCP Urine VISTA NEGATIVE (< 25 ng/mL); THC Urine VISTA POSITIVE (< 50 ng/mL); Vista UDS pH Range 5
== END | disposition home or self-care (01) ==
PROVIDERS: PCP Family Medicine; Referring Provider Anesthesiology Pain Medicine; Visit Provider Anesthesiology Pain Medicine
DX: F11.20 Opioid dependence, uncomplicated (principal)
CPT/HCPCS: 80307

== ENCOUNTER → 2025-03-28 | Outpatient (CLI) | payer OTHER, SELFPAY ==
--- NOTE | 2025-03-28 11:40 | RAD_ITS ---
EXAM: XR Lumbosacral Spine, 2 or 3 Views CLINICAL INDICATION: SPONDYLOSIS WITHOUT MYELOPATHY OR RADICULOPATHY, LUMBAR REGION TECHNIQUE: Frontal and lateral views of the lumbar spine and sacrum. COMPARISON: No relevant prior studies available. FINDINGS: VERTEBRAE: Moderate facet arthropathy L4-S1. Mild endplate degenerative change and disc disease of L3-S1. No acute fracture. Normal alignment. SACRUM/COCCYX: Unremarkable as visualized. No acute fracture. DISC SPACES: No acute findings. No significant narrowing. SOFT TISSUES: Unremarkable. RAD/Lumbar Spine 2 or 3 Views IMPRESSION: Degenerative changes as above. Reading Location: [facility]
--- NOTE | 2025-03-28 11:40 | RAD_ITS ---
EXAM: XR Thoracic Spine, 2 Views CLINICAL INDICATION: SPONDYLOSIS WITHOUT MYELOPATHY OR RADICULOPATHY, LUMBAR REGION TECHNIQUE: Frontal and lateral views of the thoracic spine. COMPARISON: No relevant prior studies available. FINDINGS: VERTEBRAE: Degenerative disc disease and facet arthropathy throughout the thoracic spine. No acute fracture. Normal alignment. DISC SPACES: See above. SOFT TISSUES: Unremarkable. RAD/Thoracic Spine 2 Views IMPRESSION: Degenerative changes thoracic spine as described. Reading Location: [facility]
== END | disposition home or self-care (01) ==
LOC: RAD 11:23
PROVIDERS: PCP Family Medicine; Referring Provider Anesthesiology Pain Medicine; Visit Provider Anesthesiology Pain Medicine
DX: M47.816 Spondylosis without myelopathy or radiculopathy, lumbar region (principal)
CPT/HCPCS: 72070; 72100